=== PATIENT | male | born 1990 | race Caucasian/White ===

== ENCOUNTER 2025-05-10 13:59 | Emergency (ER) | payer BC, SELFPAY ==
[2025-05-10 14:09] VITALS: BP 126/80; PULSE 73; RESP 16; TEMP 36.4; O2SAT 95
--- NOTE | 2025-05-10 14:15 | DI.RAD_ITS ---
Exam(s) XR CLAVICLE LT EXAM: XR CLAVICLE LT CLINICAL HISTORY: fall and pain TECHNIQUE: 2D digital imaging was performed of the left clavicle. Two images were obtained. AP and axial views were obtained. COMPARISON: No exams were available for comparison FINDINGS: BONES: There is an acute displaced fracture involving the lateral aspect of the left clavicle. There is an sideplate and screws transfixing an old healed left clavicular fracture. There is an osseous density inferior to the clavicle which may represent a displaced fracture fragment. No bony destructive lesion is seen. JOINTS: There is widening of the cortical clavicular distance suspicious for ligament tear. SOFT TISSUE: Normal. IMPRESSION: 1. There is an acute comminuted fracture of the distal clavicle. 2. Widening of the cortical clavicular distance suspicious for ligament tear. 3. The preliminary [facility] report was reviewed. DATA REPOSITORY: RADIATION DOSE DELIVERED:
--- NOTE | 2025-05-10 14:15 | DI.RAD_ITS ---
Exam(s) XR ANKLE RT COMPLETE EXAM: XR ANKLE RT COMPLETE CLINICAL HISTORY: fall and pian/ swelling. TECHNIQUE: 2D digital imaging was performed of the right ankle. Three images were obtained. AP, lateral and oblique views were obtained. COMPARISON: No exams were available for comparison FINDINGS: BONES: No acute fracture is present. No bony destructive lesion is seen. JOINTS: The ankle mortise is normally aligned. SOFT TISSUE: There is soft tissue swelling laterally. IMPRESSION: 1. There is no acute fracture or dislocation. 2. Soft tissue swelling laterally. If there is concern for ligamentous injury, an MRI should be considered for further evaluation. 3. The preliminary [facility] report was reviewed. DATA REPOSITORY: RADIATION DOSE DELIVERED:
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
[2025-05-10] MEDS: Ibuprofen 600 MG TAB PO (14:34)
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
== END 2025-05-10 17:45 | disposition home or self-care (01) ==
PROVIDERS: Emergency Provider Emergency Medicine Emergency Medical Services
DX: S93.401A Sprain of unspecified ligament of right ankle, initial encounter; S42.032A Displaced fracture of lateral end of left clavicle, initial encounter for closed fracture; V18.0XXA Pedal cycle driver injured in noncollision transport accident in nontraffic accident, initial encounter
CPT/HCPCS: 99284 ×2; 73000; 73610